=== PATIENT | female | born 1990 | race American Indian/Alaskan Native ===

== ENCOUNTER 2016-11-27 00:01 | Inpatient (IN) | payer MEDICAID ==
[2016-11-27 00:34] LABS: Basophils % (Auto) 0.3 % (0.0-1.8); Eosinophils % (Auto) 0.2 % (0.0-4.3); Hematocrit 30.3 % (30.3-42.9); Hemoglobin 9.9 gm/dl (10.1-14.3); Mean Corpuscular HGB Conc 33 % (30-34); Mean Corpuscular Volume 79 fl (79-97); Platelet Count 117 K/mm3 (140-440); Red Blood Count 3.85 M/mm3 (3.65-5.03); Red Cell Distribution Width 16.6 % (13.2-15.2); White Blood Count 11.6 K/mm3 (4.5-11.0)
[2016-11-27 00:36] LABS: Mean Corpuscular Hemoglobin 26 pg (28-32)
[2016-11-27 00:58] LABS: Alanine Aminotransferase 10 units/L (7-56); Albumin 4.1 g/dL (3.9-5); Alkaline Phosphatase 45 units/L (35-129); Anion Gap 18 mmol/L; Blood Urea Nitrogen 7 mg/dL (7-17); Calcium 9.2 mg/dL (8.4-10.2); Carbon Dioxide 20 mmol/L (22-30); Chloride 97.6 mmol/L (98-107); Glucose 102 mg/dL (65-100); Lipase 19 units/L (13-60); Potassium 3.3 mmol/L (3.6-5.0); Sodium 132 mmol/L (137-145); Total Protein 8.2 g/dL (6.3-8.2)
[2016-11-27 01:58] LABS: Bilirubin,Urine NEG (Negative); Blood,Urine NEG (Negative); Ketones,Urine TR mg/dL (Negative); Leukocyte Esterase,Urine NEG (Negative); Mucus,Urine 1+ /HPF; Nitrite,Urine NEG (Negative); Protein,Urine <15 mg/dL mg/dL (Negative); Urobilinogen,Urine < 2.0 mg/dL (<2.0)
--- NOTE | 2016-11-27 02:33 | Emergency Department Report ---
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 She is complaining of generalized abdominal pain 1 day with one episode of vomiting. Patient denies any fever or chills. Denies any diarrhea. She said she has irregular bowel pattern. She said the pain is crampy. Pain is 10 out of 10 to her abdomen. Denies any vaginal bleeding or discharge. Denies any urinary burning frequency or urgency. Denies any back pain. Dr. Yari Justice's patient primary care physician she also follows a specialist for her lupus. Patient has a history of appendectomy and right oophorectomy. MD Complaint: abdominal pain Onset/Timin -: hour(s) Location: diffuse Radiation: none Migration to: no migration Severity: severe Severity scale (0 -10): 10 Quality: cramping Consistency: constant Improves With: nothing Worsens With: nothing Context: other (unknown) Associated Symptoms: nausea, vomiting, constipation. denies: diarrhea, fever, chills, dysuria, hematemesis, hematochezia, melena, hematuria, anorexia, syncope Treatments Prior to Arrival: other (none) - Related Data LMP Date: 11/01/16 Allergies Allergy/AdvReac Type Severity Reaction Status Date / Time No Known Allergies Allergy Verified 11/27/16 00:09 ED Review of Systems ROS: Stated complaint: STOMACH PAIN Other details as noted in HPI Comment: All other systems reviewed and negative Constitutional: denies: chills, fever ENT: denies: throat pain Respiratory: no symptoms reported Cardiovascular: denies: chest pain, palpitations, edema, syncope Gastrointestinal: abdominal pain, nausea, vomiting. denies: diarrhea, constipation, hematemesis, melena, hematochezia Genitourinary: denies: urgency, dysuria, frequency, hematuria, discharge, abnormal menses Musculoskeletal: denies: back pain, arthralgia, myalgia Skin: rash (patient with lupus rash which is chronic) Neurological: denies: headache, weakness, numbness, paresthesias, confusion, abnormal gait, vertigo ED Past Medical Hx - Past Medical History Previous Medical History?: Yes Additional medical history: Discoid lupus. SLE - Surgical History Past Surgical History?: Yes Additional Surgical History: RIGHT OVARY REMOVAL / C SECTION X 1 - Family History Family history: hypertension (she lives with her family) - Social History Smoking Status: Never Smoker Substance Use Type: Marijuana Other Social History: She lives with her family ED Physical Exam - General Limitations: No Limitations General appearance: alert, in no apparent distress - Head Head exam: Present: atraumatic, normocephalic, normal inspection - Eye Eye exam: Present: normal appearance, PERRL, EOMI Pupils: Present: normal accommodation - ENT ENT exam: Present: normal exam, normal orophraynx, mucous membranes moist - Neck Neck exam: Present: normal inspection, full ROM. Absent: tenderness, meningismus, lymphadenopathy - Respiratory Respiratory exam: Present: normal lung sounds bilaterally. Absent: respiratory distress, wheezes, rales, rhonchi, stridor, chest wall tenderness, accessory muscle use - Cardiovascular Cardiovascular Exam: Present: normal rhythm, tachycardia, normal heart sounds - GI/Abdominal GI/Abdominal exam: Present: soft, tenderness (generalized), guarding, normal bowel sounds. Absent: distended, rebound, rigid, mass, bruit, pulsatile mass, hernia - Extremities Exam Extremities exam: Present: normal inspection, full ROM, normal capillary refill. Absent: tenderness, pedal edema, joint swelling, calf tenderness - Back Exam Back exam: Present: normal inspection, full ROM. Absent: tenderness, CVA tenderness (R), CVA tenderness (L), muscle spasm, paraspinal tenderness, vertebral tenderness, rash noted - Neurological Exam Neurological exam: Present: alert, oriented X3, normal gait, reflexes normal. Absent: motor sensory deficit - Psychiatric Psychiatric exam: Present: normal affect, normal mood - Skin Skin exam: Present: warm, dry, intact, rash, other (patient with generalized rash from discoid lupus which are hyper pigmented areas with butterfly rash to the facial area). Absent: erythema ED Course Vital Signs 11/27/16 11/27/16 11/27/16 00:09 03:10 03:11 Temperature 99.9 F H 99.2 F Pulse Rate 105 H 95 H Respiratory 20 16 16 Rate Blood Pressure 131/63 Blood Pressure 115/73 [Left] O2 Sat by Pulse 100 100 100 Oximetry 11/27/16 11/27/16 11/27/16 03:25 03:54 05:54 Temperature 98 F 98.8 F Pulse Rate 74 100 H Respiratory 18 18 18 Rate Blood Pressure Blood Pressure 119/68 119/74 [Left] O2 Sat by Pulse 97 100 Oximetry 11/27/16 11/27/16 11/27/16 06:39 07:09 11:14 Temperature 99.0 F Pulse Rate 94 H Respiratory 18 18 18 Rate Blood Pressure Blood Pressure 121/71 [Left] O2 Sat by Pulse 100 Oximetry Vital Signs 11/27/16 11/27/16 11/27/16 00:09 03:10 03:11 Temperature 99.9 F H 99.2 F Pulse Rate 105 H 95 H Respiratory 20 16 16 Rate Blood Pressure 131/63 Blood Pressure 115/73 [Left] O2 Sat by Pulse 100 100 100 Oximetry 11/27/16 11/27/16 11/27/16 03:25 03:54 05:54 Temperature 98 F 98.8 F Pulse Rate 74 100 H Respiratory 18 18 18 Rate Blood Pressure Blood Pressure 119/68 119/74 [Left] O2 Sat by Pulse 97 100 Oximetry 11/27/16 06:39 Temperature Pulse Rate Respiratory 18 Rate Blood Pressure Blood Pressure [Left] O2 Sat by Pulse Oximetry - Reevaluation(s) Reevaluation #1: 11/27/16 04:27 Patient is stable she received morphine 4 mg IV, normal saline 1 L, Zofran 4 mg IV and potassium 40 mEq by mouth for potassium of 3.3. She reports no pain at present. Still awaiting CT scan report Reevaluation #2: 11/27/16 05:40 I spoke with attending physician in emergency room regarding patient presentation, lab results and CT findings and it was decided that the patient will be admitted. Awaiting MANAGEMENT TRAINER call back. This was discussed with patient and she is in agreement for admission. Reevaluation #3: 11/27/16 06:20 Patient remained stable, blood cultures order and started on maintenance IV fluid. Abdominal pain is controlled. - Consultations Consultation #1: 11/27/16 05:41 [facility] 11/27/16 06:20 ED Medical Decision Making - Lab Data Result diagrams: 11/27/16 00:17 11/27/16 00:17 Lab Results 11/27/16 11/27/16 11/27/16 Range/Units 00: 00:17 00:17 WBC 11.6 H (4.5-11.0) K/mm3 RBC 3.85 (3.65-5.03) M/mm3 Hgb 9.9 L (10.1-14.3) gm/dl Hct 30.3 (30.3-42.9) % MCV 79 (79-97) fl MCH 26 L (28-32) pg MCHC 33 (30-34) % RDW 16.6 H (13.2-15.2) % Plt Count 117 L (140-440) K/mm3 Lymph % (Auto) 5.4 L (13.4-35.0) % Dickenson % (Auto) 13.1 H (0.0-7.3) % Eos % (Auto) 0.2 (0.0-4.3) % Baso % (Auto) 0.3 (0.0-1.8) % Lymph # 0.6 L (1.2-5.4) K/mm3 Dickenson # 1.5 H (0.0-0.8) K/mm3 Eos # 0.0 (0.0-0.4) K/mm3 Baso # 0.0 (0.0-0.1) K/mm3 Seg Neutrophils % 81.0 H (40.0-70.0) % Seg Neutrophils # 9.4 H (1.8-7.7) K/mm3 Sodium 132 L (137-145) mmol/L Potassium 3.3 L (3.6-5.0) mmol/L Chloride 97.6 L (98-107) mmol/L Carbon Dioxide 20 L (22-30) mmol/L Anion Gap 18 mmol/L BUN 7 (7-17) mg/dL Creatinine 0.4 L (0.7-1.2) mg/dL Estimated GFR > 60 ml/min BUN/Creatinine Ratio 17.50 % Glucose 102 H (65-100) mg/dL Calcium 9.2 (8.4-10.2) mg/dL Total Bilirubin 0.40 (0.1-1.2) mg/dL AST 15 (5-40) units/L ALT 10 (7-56) units/L Alkaline Phosphatase 45 (35-129) units/L Total Protein 8.2 (6.3-8.2) g/dL Albumin 4.1 (3.9-5) g/dL Albumin/Globulin Ratio 1.0 % Lipase 19 (13-60) units/L HCG, Qual Negative (Negative) Urine Color (Yellow) Urine Turbidity (Clear) Urine pH (5.0-7.0) Ur Specific [place] (1.003-1.030) Urine Protein (Negative) mg/dL Urine Glucose (UA) (Negative) mg/dL Urine Ketones (Negative) mg/dL Urine Blood (Negative) Urine Nitrite (Negative) Urine Bilirubin (Negative) Urine Urobilinogen (<2.0) mg/dL Ur Leukocyte Esterase (Negative) Urine WBC (Auto) (0.0-6.0) /HPF Urine RBC (Auto) (0.0-6.0) /HPF U Epithel Cells (Auto) (0-13.0) /HPF Hyaline Casts /LPF Urine Mucus /HPF 11/27/16 Range/Units 00:40 WBC (4.5-11.0) K/mm3 RBC (3.65-5.03) M/mm3 Hgb (10.1-14.3) gm/dl Hct (30.3-42.9) % MCV (79-97) fl MCH (28-32) pg MCHC (30-34) % RDW (13.2-15.2) % Plt Count (140-440) K/mm3 Lymph % (Auto) (13.4-35.0) % Dickenson % (Auto) (0.0-7.3) % Eos % (Auto) (0.0-4.3) % Baso % (Auto) (0.0-1.8) % Lymph # (1.2-5.4) K/mm3 Dickenson # (0.0-0.8) K/mm3 Eos # (0.0-0.4) K/mm3 Baso # (0.0-0.1) K/mm3 Seg Neutrophils % (40.0-70.0) % Seg Neutrophils # (1.8-7.7) K/mm3 Sodium (137-145) mmol/L Potassium (3.6-5.0) mmol/L Chloride (98-107) mmol/L Carbon Dioxide (22-30) mmol/L Anion Gap mmol/L BUN (7-17) mg/dL Creatinine (0.7-1.2) mg/dL Estimated GFR ml/min BUN/Creatinine Ratio % Glucose (65-100) mg/dL Calcium (8.4-10.2) mg/dL Total Bilirubin (0.1-1.2) mg/dL AST (5-40) units/L ALT (7-56) units/L Alkaline Phosphatase (35-129) units/L Total Protein (6.3-8.2) g/dL Albumin (3.9-5) g/dL Albumin/Globulin Ratio % Lipase (13-60) units/L HCG, Qual (Negative) Urine Color Yellow (Yellow) Urine Turbidity Clear (Clear) Urine pH 6.0 (5.0-7.0) Ur Specific [place] 1.019 (1.003-1.030) Urine Protein <15 mg/dl (Negative) mg/dL Urine Glucose (UA) Neg (Negative) mg/dL Urine Ketones Tr (Negative) mg/dL Urine Blood Neg (Negative) Urine Nitrite Neg (Negative) Urine Bilirubin Neg (Negative) Urine Urobilinogen < 2.0 (<2.0) mg/dL Ur Leukocyte Esterase Neg (Negative) Urine WBC (Auto) 3.0 (0.0-6.0) /HPF Urine RBC (Auto) 1.0 (0.0-6.0) /HPF U Epithel Cells (Auto) 2.0 (0-13.0) /HPF Hyaline Casts 1 /LPF Urine Mucus 1+ /HPF Blood cultures are pending and - Radiology Data Radiology results: report reviewed CT of the abdomen with IV contrast revealed complex low-density mass in the left adnexal region measuring up to 4.7 cm in diameter. This could be a hemorrhagic ovarian cyst. The cystic neoplasm or tubo-ovarian abscess considered less likely. There is no ascites, free fluid, abscess or edema past the period. There is moderate stool in the sigmoid and rectum. There is no obstruction, colitis or enteritis. The appendix is not visualized but patient has a history of appendectomy. Normal vasculature. Bladder is normal. Uterus is unremarkable. Spleen, gallbladder, pancreas, adrenal gland is normal. Kidneys show 8 mm cyst with peripheral calcification in the lower pole of the right kidney. There is no nephrolithiasis or hydronephrosis - Medical Decision Making ED course: Patient here reporting that she's had abdominal pain over one day with vomiting. She describes her pain as generalized and cramping. Patient was given a total of 12 mg of morphine and 4 mg increments via IV which helped her pain. Also given Zofran 4 mg IV, IV fluid normal saline 1 L bolus along with IV fluid maintenance dose at 125 mL an hour normal saline. Patient's CBC , CMP with abnormalities, CT scan of the abdomen and pelvis also with abnormalities please see below for details. Patient had blood cultures drawn and sent and started on IV Zosyn. I spoke with Dr. Schulz regarding patient presentation, clinical findings, diagnostics findings and lab results and it was agreed the patient will be admitted to the hospital. I spoke with Dr. Olson who is the hospitalist and he will accept patient and consult MANAGEMENT TRAINER. Patient updated on plan and she is in agreement. Patient given Dulcolax 10 mg by mouth for constipation. She is stable and pain-free at present. Labs/diagnostics:CT of the abdomen with IV contrast revealed complex low- density mass in the left adnexal region measuring up to 4.7 cm in diameter. This could be a hemorrhagic ovarian cyst. The cystic neoplasm or tubo-ovarian abscess considered less likely. There is no ascites, free fluid, abscess or edema past the period. There is moderate stool in the sigmoid and rectum. There is no obstruction, colitis or enteritis. The appendix is not visualized but patient has a history of appendectomy. Normal vasculature. Bladder is normal. Uterus is unremarkable. Spleen, gallbladder, pancreas, adrenal gland is normal. Kidneys show 8 mm cyst with peripheral calcification in the lower pole of the right kidney. There is no nephrolithiasis or hydronephrosis, CBC shows mild elevation in white blood cell and slight shift to the left suggesting bacterial infection, low platelet count of 119, decreased hemoglobin suggesting anemia from chronic disease D Alvaro section for other CBC values. CMP with potassium of 3.3, slight decrease in sodium, chloride and CO2. Lipase is normal. Liver enzymes are normal, test is negative. Urinalysis is normal except for trace ketone and less than 15 protein. Assessment/plan 1. Thrombocytopenia 2. Abdominal pain generalized 3. Constipation 4. Fever in adult 5. Electrolyte imbalances 6. Anemia probably from chronic disease 7. Right renal cyst 8. Left adnexal mass hemorrhagic cyst versus cystic neoplasm versus tubo- ovarian abscess. Patient will be admitted under hospitalist service to inpatient hospital and OB/ LAUNDROMAT WORKER will be consulted. I placed a call to MANAGEMENT TRAINER and spoke with Dr. Katlin Interiano for consult. Patient does have her own MANAGEMENT TRAINER which does not have privilege to this hospital. Patient started on IV Rocephin and maintenance normal saline at 1 25 mL an hour. Critical care attestation.: If time is entered above; I have spent that time in minutes in the direct care of this critically ill patient, excluding procedure time. ED Disposition Disposition: -09 OP ADMIT IP TO THIS HOSP Is pt being admited?: Yes Does the pt Need Aspirin: No Condition: Stable <DARSHANA SCHULZ - Last Filed: 11/28/16 11:06> ED Medical Decision Making - Lab Data Result diagrams: 11/27/16 22:34 11/28/16 04:35 - Medical Decision Making I have seen and examined this patient myself. I agree with the PA or ADULT CROSSING GUARD plan as discussed. Jorgito Schulz
[2016-11-27] MEDS ORDERED: K-DUR PO ONE (03:02)
[2016-11-27] MEDS ORDERED: MORPHINE IV ONE ×2 (03:04→06:34)
[2016-11-27] MEDS ORDERED: ZOFRAN IV ONE (03:04)
[2016-11-27] MEDS ORDERED: NACL 0.9% 1000 ML 1,000 ML IV ONE (03:04)
[2016-11-27] MEDS ORDERED: NACL ONE (03:12)
--- NOTE | 2016-11-27 04:10 | Cat Scan Report ---
FINAL REPORT PROCEDURE: CT ABDOMEN PELVIS W CON TECHNIQUE: Computerized axial tomography of the abdomen and pelvis was performed after the IV injection of iodinated nonionic contrast. HISTORY: abdominal pain very low pelvic pain COMPARISON: No prior studies are available for comparison. FINDINGS: Visualized lower thorax: No significant abnormality. Liver: Normal size and attenuation. There is a 5 millimeters cyst in the right lobe of the liver. Spleen: Normal size and attenuation. Gallbladder and biliary system: Normal. Pancreas: Normal. Adrenals: Normal. Kidneys: There is an 8 millimeter cyst with peripheral calcification in the lower pole of the right kidney. There is no nephrolithiasis or hydronephrosis. GI tract: There is moderate stool in the sigmoid and rectum. There is no obstruction, colitis or enteritis. The appendix is not visible. There is no indirect evidence of appendicitis.. Lymph nodes and mesentery: Normal. Vasculature: Normal. Bladder: Normal. Reproductive organs: Uterus is unremarkable. There is a complex low-density mass in the left adnexal region measuring up to 4.7 centimeters in diameter. This could be a hemorrhagic ovarian cyst. The cystic neoplasm or tubo-ovarian abscess considered less likely.. Peritoneum: There is no ascites, free air, abscess or adenopathy.. Musculoskeletal structures: No significant abnormality. Other: None. IMPRESSION: There is a complex low-density mass in the left adnexal region measuring up to 4.7 centimeters in diameter. This could be a hemorrhagic ovarian cyst. The cystic neoplasm or tubo-ovarian abscess considered less likely.. There is no ascites, free air, abscess or adenopathy..
[2016-11-27] MEDS ORDERED: ZOSYN/NS 4.5GM/100ML 4.5 GM/100 ML VIAL IV ONE (05:43)
[2016-11-27] MEDS: NACL 0.9% 1000 ML 1,000 ML IV SCH ×2 (06:20→16:02)
[2016-11-27] MEDS ORDERED: DULCOLAX PO ONE (06:21)
[2016-11-27] MEDS ORDERED: DULCOLAX PR PRN (08:13)
[2016-11-27] MEDS ORDERED: TYLENOL PO PRN (08:13)
--- NOTE | 2016-11-27 08:13 | History and Physical Report ---
<MICHAEL MACKEY - Last Filed: 11/27/16 13:27> History of Present Illness Date of examination: 11/27/16 Date of admission: 11/27/2016 Chief complaint: lower abdominal pain, nausea and vomiting History of present illness: Patient is 26 years old with past medical history of systemic Lupus and Discoid, who presents to the Emergency Department for lower abdominal pain, nausea and vomiting X 1 day. Patient states that for the past three days she has felt bloated and has had a decrease in appetite. Two days ago she began having intermittent abdominal pain that initially felt like gas pains but it has now progressed to being nearly constant. Since yesterday she has had severe nausea and has had one episodes of bilious vomiting despite not having taken anything by mouth in over 24 hours. Her last bowel movement was over five days ago. She describes the pain crampy and she gave her pain 9/10 at present time. NO aggravating or reliving factors. She did not take any medication to relief the pain. She has a history of intermittent constipation but never with this level of pain, the vomiting, or the bloating. Patient denies any fever or chills , diarrhea, urinary burning frequency or urgency. Denies lower back pain or vaginal discharge or bleeding. Past History Past Medical History: other (systemic lupus and discoid lupus) Past Surgical History: appendectomy, Other (Oophorectomy) Social history: lives with family. denies: smoking, alcohol abuse Family history: CAD, diabetes, hypertension Medications and Allergies Allergies Allergy/AdvReac Type Severity Reaction Status Date / Time No Known Allergies Allergy Verified 11/27/16 00:09 Home Medications Medication Instructions Recorded Confirmed Last Taken Type Hydroxychloroquine [Plaquenil] 200 mg PO Q12HR 11/27/16 11/27/16 11/26/16 History Active Meds: Active Medications Sodium Chloride (Nacl 0.9% 1000 Ml) 1,000 mls @ 125 mls/hr IV DIRECT RUPALI Last Admin: 11/27/16 06:20 Dose: 125 mls/hr Review of Systems Constitutional: no weight loss, no fever, no chills Ears, nose, mouth and throat: no ear pain, no ear discharge, no tinnitis, no decreased hearing, no nose pain Breasts: no change in shape, no swelling, no mass Cardiovascular: no chest pain, no orthopnea, no palpitations Respiratory: no cough, no cough with sputum, no excessive sputum, no hemoptysis , no shortness of breath Gastrointestinal: no nausea, no vomiting, no diarrhea, no constipation Genitourinary Female: no pelvic pain, no flank pain, no menorrhagia, no dysuria , no urinary frequency Menstruation: no premenarcheal, no post hysterectomy, no ammenorrhea, no ammenorrhea on BC, no period normal Rectal: no incontinence, no bleeding Musculoskeletal: no neck pain, no shooting arm pain, no arm numbness/tingling, no low back pain Integumentary: no rash, no pruritis, no redness, no sores Neurological: no paralysis, no weakness, no parathesias, no numbness Psychiatric: no memory loss, no change in sleep habits, no sleep disturbances Endocrine: no cold intolerance, no heat intolerance, no polyphagia Hematologic/Lymphatic: no easy bruising, no easy bleeding Allergic/Immunologic: no urticaria, no allergic rhinitis, no wheezing Exam - Constitutional Vitals: Temp Pulse Resp BP Pulse Ox 98.8 F 100 H 18 119/74 100 11/27/16 05:54 11/27/16 05:54 11/27/16 06:39 11/27/16 05:54 11/27/16 05:54 General appearance: Present: no acute distress - EENT Eyes: Present: PERRL ENT: hearing intact - Neck Neck: Present: supple - Respiratory Respiratory effort: normal Respiratory: bilateral: CTA - Cardiovascular Heart rate: 100 Rhythm: regular Heart Sounds: Present: S1 & S2 - Extremities Extremities: no ischemia, No edema Peripheral Pulses: within normal limits - Abdominal General gastrointestinal: Present: soft, non-tender Localized gastrointestinal: tender: suprapubic Female genitourinary: Present: deferred - Rectal Rectal Exam: deferred - Integumentary Integumentary: Present: clear, warm, dry - Musculoskeletal Musculoskeletal: strength equal bilaterally - Psychiatric Psychiatric: appropriate mood/affect - Neurologic Neurologic: CNII-XII intact - Allied Health Allied health notes reviewed: nursing Results - Labs CBC & Chem 7: 11/27/16 00:17 11/27/16 00:17 Labs: Laboratory Last Values WBC 11.6 K/mm3 (4.5-11.0) H 11/27/16 00:17 RBC 3.85 M/mm3 (3.65-5.03) 11/27/16 00:17 Hgb 9.9 gm/dl (10.1-14.3) L 11/27/16 00:17 Hct 30.3 % (30.3-42.9) 11/27/16 00:17 MCV 79 fl (79-97) 11/27/16 00:17 MCH 26 pg (28-32) L 11/27/16 00:17 MCHC 33 % (30-34) 11/27/16 00:17 RDW 16.6 % (13.2-15.2) H 11/27/16 00:17 Plt Count 117 K/mm3 (140-440) L 11/27/16 00:17 Lymph % (Auto) 5.4 % (13.4-35.0) L 11/27/16 00:17 [place] % (Auto) 13.1 % (0.0-7.3) H 11/27/16 00:17 Eos % (Auto) 0.2 % (0.0-4.3) 11/27/16 00:17 Baso % (Auto) 0.3 % (0.0-1.8) 11/27/16 00:17 Lymph # 0.6 K/mm3 (1.2-5.4) L 11/27/16 00:17 [place] # 1.5 K/mm3 (0.0-0.8) H 11/27/16 00:17 Eos # 0.0 K/mm3 (0.0-0.4) 11/27/16 00:17 Baso # 0.0 K/mm3 (0.0-0.1) 11/27/16 00:17 Seg Neutrophils % 81.0 % (40.0-70.0) H 11/27/16 00:17 Seg Neutrophils # 9.4 K/mm3 (1.8-7.7) H 11/27/16 00:17 Sodium 132 mmol/L (137-145) L 11/27/16 00:17 Potassium 3.3 mmol/L (3.6-5.0) L 11/27/16 00:17 Chloride 97.6 mmol/L (98-107) L 11/27/16 00:17 Carbon Dioxide 20 mmol/L (22-30) L 11/27/16 00:17 Anion Gap 18 mmol/L 11/27/16 00:17 BUN 7 mg/dL (7-17) 11/27/16 00:17 Creatinine 0.4 mg/dL (0.7-1.2) L 11/27/16 00:17 Estimated GFR > 60 ml/min 11/27/16 00:17 BUN/Creatinine Ratio 17.50 % 11/27/16 00:17 Glucose 102 mg/dL (65-100) H 11/27/16 00:17 Calcium 9.2 mg/dL (8.4-10.2) 11/27/16 00:17 Total Bilirubin 0.40 mg/dL (0.1-1.2) 11/27/16 00:17 AST 15 units/L (5-40) 11/27/16 00:17 ALT 10 units/L (7-56) 11/27/16 00:17 Alkaline Phosphatase 45 units/L (35-129) 11/27/16 00:17 Total Protein 8.2 g/dL (6.3-8.2) 11/27/16 00:17 Albumin 4.1 g/dL (3.9-5) 11/27/16 00:17 Albumin/Globulin Ratio 1.0 % 11/27/16 00:17 Lipase 19 units/L (13-60) 11/27/16 00:17 HCG, Qual Negative (Negative) 11/27/16 00:17 Urine Color Yellow (Yellow) 11/27/16 00:40 Urine Turbidity Clear (Clear) 11/27/16 00:40 Urine pH 6.0 (5.0-7.0) 11/27/16 00:40 Ur Specific [place] 1.019 (1.003-1.030) 11/27/16 00:40 Urine Protein <15 mg/dl mg/dL (Negative) 11/27/16 00:40 Urine Glucose (UA) Neg mg/dL (Negative) 11/27/16 00:40 Urine Ketones Tr mg/dL (Negative) 11/27/16 00:40 Urine Blood Neg (Negative) 11/27/16 00:40 Urine Nitrite Neg (Negative) 11/27/16 00:40 Urine Bilirubin Neg (Negative) 11/27/16 00:40 Urine Urobilinogen < 2.0 mg/dL (<2.0) 11/27/16 00:40 Ur Leukocyte Esterase Neg (Negative) 11/27/16 00:40 Urine WBC (Auto) 3.0 /HPF (0.0-6.0) 11/27/16 00:40 Urine RBC (Auto) 1.0 /HPF (0.0-6.0) 11/27/16 00:40 U Epithel Cells (Auto) 2.0 /HPF (0-13.0) 11/27/16 00:40 Hyaline Casts 1 /LPF 11/27/16 00:40 Urine Mucus 1+ /HPF 11/27/16 00:40 - Imaging and Cardiology CT scan - abdomen: image reviewed (There is a complex-density mass in the left adnexal region measuring up to 4.7cm. This could be a hemorragic ovarian cyst.) Assessment and Plan Assessment and plan: Lecocytosis Unknown Ethology We will repeat CBC in the morning Abdominal pain/Intractable nausea and vomiting Antiemetic IV fluid hydration Pain controlled with morphine Supportive care Hyponatremia Started on IVF hydration with NS this will correct it. Clsely monitor electrolytes Hypokalemia Replaced with 40MEQ potassium Repeat MBP and closely monitor electrolytes Adnexal mass Transvaginal and Pelvic US ordered OBYGN consulted Supportive care Systemic Lupus and Discoid Lupus Stable at this time Follow up with her PCP us outpatient. DVT Prophylaxis Lovenox Advance Directives: Yes Contraindication Mechanical VTE Prophylaxis: Treatment Not Indicated Plan of care discussed with patient/family: Yes <CHAD JONES R - Last Filed: 11/28/16 09:19> History of Present Illness Date of admission: 11/27/16 08:13 Medications and Allergies Active Meds: Active Medications Acetaminophen (Tylenol) 650 mg PO Q4H PRN PRN Reason: Pain MILD(1-3)/Fever >100.5/ELIAS Bisacodyl (Dulcolax) 10 mg [place] QDAY PRN PRN Reason: Constipation unrelieved by MOM Enoxaparin Sodium (Lovenox) 40 mg SUB-Q QDAY [facility] Last Admin: 11/27/16 09:49 Dose: 40 mg Hydroxychloroquine Sulfate (Plaquenil) 200 mg PO Q12HR [facility] Last Admin: 11/27/16 22:18 Dose: 200 mg Sodium Chloride (Nacl 0.9% 1000 Ml) 1,000 mls @ 125 mls/hr IV DIRECT RUPALI Last Admin: 11/27/16 16:02 Dose: 1,000 mls/hr Sodium Chloride (Nacl 0.9% 1000 Ml) 1,000 mls @ 75 mls/hr IV DIRECT RUPALI Ampicillin Sodium/Sulbactam Sodium (Unasyn/Ns 3 Gm/100 Ml) 3 gm in 100 mls @ 100 mls/hr IV Q6HR RUPALI PRN Reason: Protocol Last Admin: 11/28/16 07:17 Dose: 100 mls/hr Doxycycline Hyclate 100 mg/ (Sodium Chloride) 250 mls @ 250 mls/hr IV Q12HR RUPALI PRN Reason: Protocol Last Admin: 11/27/16 23:44 Dose: 250 mls/hr Morphine Sulfate (Morphine) 2 mg IV Q4H PRN PRN Reason: Pain , Severe (7-10) Last Admin: 11/28/16 04:00 Dose: 2 mg Ondansetron HCl (Zofran) 4 mg IM Q4H PRN PRN Reason: Nausea And Vomiting Last Admin: 11/28/16 04:00 Dose: 4 mg Exam - Constitutional Vitals: Temp Pulse Resp BP Pulse Ox 99.8 F H 89 14 114/59 100 11/27/16 21:40 11/27/16 21:40 11/27/16 21:40 11/27/16 21:40 11/27/16 21:40 Results - Labs CBC & Chem 7: 11/27/16 22:34 11/28/16 04:35 Labs: Laboratory Last Values WBC 10.3 K/mm3 (4.5-11.0) 11/27/16 22:34 RBC 3.49 M/mm3 (3.65-5.03) L 11/27/16 22:34 Hgb 9.1 gm/dl (10.1-14.3) L 11/27/16 22:34 Hct 27.7 % (30.3-42.9) L 11/27/16 22:34 MCV 79 fl (79-97) 11/27/16 22:34 MCH 26 pg (28-32) L 11/27/16 22:34 MCHC 33 % (30-34) 11/27/16 22:34 RDW 15.9 % (13.2-15.2) H 11/27/16 22:34 Plt Count 99 K/mm3 (140-440) L 11/27/16 22:34 Lymph % (Auto) 10.7 % (13.4-35.0) L 11/27/16 22:34 [place] % (Auto) 13.5 % (0.0-7.3) H 11/27/16 22:34 Eos % (Auto) 0.0 % (0.0-4.3) 11/27/16 22:34 Baso % (Auto) 0.1 % (0.0-1.8) 11/27/16 22:34 Lymph # 1.1 K/mm3 (1.2-5.4) L 11/27/16 22:34 [place] # 1.4 K/mm3 (0.0-0.8) H 11/27/16 22:34 Eos # 0.0 K/mm3 (0.0-0.4) 11/27/16 22:34 Baso # 0.0 K/mm3 (0.0-0.1) 11/27/16 22:34 Seg Neutrophils % 75.7 % (40.0-70.0) H 11/27/16 22:34 Seg Neutrophils # 7.8 K/mm3 (1.8-7.7) H 11/27/16 22:34 Sodium 135 mmol/L (137-145) L 11/28/16 04:35 Potassium 3.5 mmol/L (3.6-5.0) L 11/28/16 04:35 Chloride 100.9 mmol/L (98-107) 11/28/16 04:35 Carbon Dioxide 21 mmol/L (22-30) L 11/28/16 04:35 Anion Gap 17 mmol/L 11/28/16 04:35 BUN 5 mg/dL (7-17) L 11/28/16 04:35 Creatinine 0.5 mg/dL (0.7-1.2) L 11/28/16 04:35 Estimated GFR > 60 ml/min 11/28/16 04:35 BUN/Creatinine Ratio 10.00 % 11/28/16 04:35 Glucose 83 mg/dL (65-100) 11/28/16 04:35 Calcium 8.3 mg/dL (8.4-10.2) L 11/28/16 04:35 Total Bilirubin 0.40 mg/dL (0.1-1.2) 11/27/16 00:17 AST 15 units/L (5-40) 11/27/16 00:17 ALT 10 units/L (7-56) 11/27/16 00:17 Alkaline Phosphatase 45 units/L (35-129) 11/27/16 00:17 Total Protein 8.2 g/dL (6.3-8.2) 11/27/16 00:17 Albumin 4.1 g/dL (3.9-5) 11/27/16 00:17 Albumin/Globulin Ratio 1.0 % 11/27/16 00:17 Lipase 19 units/L (13-60) 11/27/16 00:17 HCG, Qual Negative (Negative) 11/27/16 00:17 Urine Color Yellow (Yellow) 11/27/16 00:40 Urine Turbidity Clear (Clear) 11/27/16 00:40 Urine pH 6.0 (5.0-7.0) 11/27/16 00:40 Ur Specific [place] 1.019 (1.003-1.030) 11/27/16 00:40 Urine Protein <15 mg/dl mg/dL (Negative) 11/27/16 00:40 Urine Glucose (UA) Neg mg/dL (Negative) 11/27/16 00:40 Urine Ketones Tr mg/dL (Negative) 11/27/16 00:40 Urine Blood Neg (Negative) 11/27/16 00:40 Urine Nitrite Neg (Negative) 11/27/16 00:40 Urine Bilirubin Neg (Negative) 11/27/16 00:40 Urine Urobilinogen < 2.0 mg/dL (<2.0) 11/27/16 00:40 Ur Leukocyte Esterase Neg (Negative) 11/27/16 00:40 Urine WBC (Auto) 3.0 /HPF (0.0-6.0) 11/27/16 00:40 Urine RBC (Auto) 1.0 /HPF (0.0-6.0) 11/27/16 00:40 U Epithel Cells (Auto) 2.0 /HPF (0-13.0) 11/27/16 00:40 Hyaline Casts 1 /LPF 11/27/16 00:40 Urine Mucus 1+ /HPF 11/27/16 00:40 Assessment and Plan Assessment and plan: I saw and evaluated the patient on 11/27/16. I agree with the findings and the plan of care as documented in the Nurse Practitioner's~note, with the following corrections and additions. 1. 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 Intractable nausea/vomiting, likely from gastritis, now resolved, will start on diet 3. hypokalemia, replace, likely from N/V 4. adnexal mass - obg/mobile patrol officer consult 5. h/o lupus - cont plaquenil
--- NOTE | 2016-11-27 08:38 | Admit Criteria Form ---
Admission Criteria Documentation: ABDOMINAL PAIN Clinical Indications for Admission to Inpatient Care (Place 'X' for any and all applicable criteria): Admission is indicated for ANY ONE of the following(1)(2)(3)(4)(5): [X]I. Inpatient admission required rather than observation care (Also use Abdominal Pain: Observation Care, as appropriate) because of ANY ONE of the following: [X ]a) Severe pain requiring acute inpatient management [ ]b) Identification of etiology/finding that requires inpatient care (eg, aortic dissection, free air) [ ]c) Absent bowel sounds with complete ileus(6) [ ]d) Suspected toxic megacolon [ ]e) Severe electrolyte abnormalities requiring inpatient care [ ]f) High fever or infection requiring inpatient admission as indicated by ANY ONE of following(7)(8): [ ] i) Appropriate outpatient or observational care antimicrobial treatment unavailable, not effective, or not feasible [ ] ii) Documented bacteremia [ ] iii) Temperature > 104.9 degrees F (oral) [ ] iv) T >103.1 F (oral) or < 96.8 F(rectal) that does not respond to all emergency treatment measures [ ]g) Signs of intestinal obstruction [B] [ ]h) Hemodynamic instability [ ]i) IV fluid to replace significant ongoing losses (greater than 3 L/m2 per day) (12)(13) [ ]j) Percutaneous or open drainage (eg, abscess, biliary tract ) procedures [ ]k) Parenteral nutrition regimen that must be implemented on inpatient basis []l) Other condition,treatment or monitoring requiring inpatient admission. [ ]II. Peritoneal signs present [ ]III. Surgery needed that cannot be performed on an ambulatory basis. [ ]IV. Evaluation requires patient to not eat or drink for extended period ( eg, more than 24 hours). [ ]V. Contraindications and/or Inappropriate clinical situations for Observational Care in patients with abdominal pain, when ANY ONE of the following is required: [ ]a) Thorough evaluation is required to prevent catastrophic events due to delays in diagnosing (e.g.Mesenteric ischemia) 1,3 [ ]b) Patient with severe pathology or with chronic symptoms unlikely to improve in the ED stay (3) [ ]. General contraindications and/or Inappropriate clinical situations for Observational Care in patients with abdominal pain, when ANY ONE of the following is required: [ ]a) Prediction of prolongation of LOS based on ANY ONE of the following may be considered as a contraindication for observational care 2, 3, 4, 5, 6, 7, 8, 9, 10, 11 [ ]i) Age > 65 yrs. [ ]ii) Patient arriving by ambulance [ ]iii) Patient with high acuity [ ]iv) Patient requiring vital sign monitoring [ ]v) Patient on IV medication [ ]b) Systolic blood pressures 180mmHg 3,12 [ ]c) Patient with altered mental status including delirium and other alteration of consciousness, (3) [ ]d) Patient whose discharge disposition will be to a senior living home or rehabilitation home should not be managed in Emergency Department Observation Unit. CMS rule requires 3 days hospital stay before such placement.3,13 [ ]e) Patient with failure to thrive due to broad array of etiologies 3,16,17 [ ]f) Inability to ambulate 3,14 Extended stay beyond goal length of stay may be needed for(2)(3): [ ]a) Persistent abdominal pain with suspected intra-abdominal process [ ]b) Diagnosed condition requiring continued stay (e.g., pancreatitis, complicated diverticulitis) [ ]c) Surgery (e.g., colectomy) The original [facility] [employer] content created by [employer] has been revised. The portions of the content which have been revised are identified through the use of italic text or in bold, and [facility] has neither reviewed nor approved the modified material.All other unmodified content is copyright [facility] Please see references footnoted in the original [facility] edition 2016 Admission Criteria Met: Yes
--- NOTE | 2016-11-27 09:01 | Ultrasound Report ---
Pelvic and transvaginal sonography: History: Adnexal mass. Findings: Uterus measures 8 x 4.4 x 5 cm. Endometrial thickness 17.2 mm. No fluid in the endometrium. No mass in the uterus. Right ovary not visualized. Patient gives history of right oophorectomy. Left ovary measures 5.3 x 4.5 x 4.8 cm. 2 complex cysts are identified in the left ovary. The larger measures 3.8 cm the smaller measures 2.2 cm. Minimal fluid in the cul-de-sac. Impression: Complex cyst left ovary. Minimal fluid in the cul-de-sac. Thick endometrium.
[2016-11-27] MEDS: LOVENOX SUB-Q SCH (09:49)
[2016-11-27] MEDS ORDERED: NACL 0.9% 1000 ML 1,000 ML IV SCH (10:00)
[2016-11-27] MEDS: ZOFRAN IM PRN ×3 (11:23→22:18)
[2016-11-27] MEDS: MORPHINE IV PRN ×3 (11:23→22:19)
[2016-11-27] MEDS: PLAQUENIL PO SCH (22:18)
--- NOTE | 2016-11-27 22:36 | Consultation ---
History of Present Illness Consult date: 11/27/16 Requesting physician: CHAD JONES Reason for consult: pelvic pain, pelvic mass History of present illness: This is a 26 yo here for abdominal pain. She states that she experienced pain starting yesterday. She states that it was 8/10 in intensity. She denies any vaginal bleeding but admits to some vaginal discharge. She admits to hx of chlam and simba in the past 5 years ago. She has some nausea only throwing up 1 x last night. She states she has low fever but has not taken at home and highest while hospitalized was 99. 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 She admits to being dx with endometriosis. She denies any control. She denies any pain in the past and really concerned about the constipation she has had in the past 3 days. 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 denies: smoking, alcohol abuse, prescription drug abuse Medications and Allergies Allergies Allergy/AdvReac Type Severity Reaction Status Date / Time No Known Allergies Allergy Verified 11/27/16 00:09 Home Medications Medication Instructions Recorded Confirmed Last Taken Type Hydroxychloroquine [Plaquenil] 200 mg PO Q12HR 11/27/16 11/27/16 11/26/16 History Doxycycline [Vibramycin CAP] 100 mg PO BID #20 capsule 11/29/16 Unknown Rx metroNIDAZOLE [Flagyl] 500 mg PO Q8HR #30 tablet 11/29/16 Unknown Rx oxyCODONE /ACETAMINOPHEN [Percocet 1 tab PO Q6HR PRN #20 tablet 11/29/16 Unknown Rx 5/325] Active Meds: Active Medications Acetaminophen (Tylenol) 650 mg PO Q4H PRN PRN Reason: Pain MILD(1-3)/Fever >100.5/ELIAS Bisacodyl (Dulcolax) 10 mg [place] QDAY PRN PRN Reason: Constipation unrelieved by MOM Enoxaparin Sodium (Lovenox) 40 mg SUB-Q QDAY [facility] Last Admin: 11/27/16 09:49 Dose: 40 mg Hydroxychloroquine Sulfate (Plaquenil) 200 mg PO Q12HR [facility] Last Admin: 11/27/16 22:18 Dose: 200 mg Sodium Chloride (Nacl 0.9% 1000 Ml) 1,000 mls @ 125 mls/hr IV DIRECT RUPALI Last Admin: 11/27/16 16:02 Dose: 1,000 mls/hr Sodium Chloride (Nacl 0.9% 1000 Ml) 1,000 mls @ 75 mls/hr IV DIRECT R[facility]ALI Ampicillin Sodium/Sulbactam Sodium (Unasyn/Ns 3 Gm/100 Ml) 3 gm in 100 mls @ 100 mls/hr IV Q6HR [facility] PRN Reason: Protocol Doxycycline Hyclate 100 mg/ (Sodium Chloride) 250 mls @ 250 mls/hr IV Q12HR [facility] PRN Reason: Protocol Morphine Sulfate (Morphine) 2 mg IV Q4H PRN PRN Reason: Pain , Severe (7-10) Last Admin: 11/27/16 22:19 Dose: 2 mg Ondansetron HCl (Zofran) 4 mg IM Q4H PRN PRN Reason: Nausea And Vomiting Last Admin: 11/27/16 22:18 Dose: 4 mg Review of Systems Gastrointestinal: abdominal pain, nausea, vomiting Genitourinary: vaginal discharge - Vital Signs Vital signs: Vital Signs Temp Pulse Resp BP Pulse Ox 99.9 F H 105 H 20 131/63 100 11/27/16 00:09 11/27/16 00:09 11/27/16 00:09 11/27/16 00:09 11/27/16 00:09 Temp Pulse Resp BP Pulse Ox 99.8 F H 89 14 114/59 100 11/27/16 21:40 11/27/16 21:40 11/27/16 21:40 11/27/16 21:40 11/27/16 21:40 - Physical Exam Breasts: Positive: deferred Cardiovascular: Regular rate, Normal S1 Lungs: Positive: Clear to auscultation, Normal air movement Abdomen: Positive: normal appearance, soft, tenderness, normal bowel sounds. Negative: distention, guarding Genitourinary (Female): Positive: normal external genitalia, normal perenium. Negative: perineal/vulvar lesions Vulva: both: normal Vagina: Positive: normal moisture, discharge (white thin discharge) Cervix: Positive: discharge. Negative: lesion Uterus: Positive: normal size, tender Adnexa: both: tenderness (+ cervical motion tenderness ) Anus/Rectum: Positive: normal perianal skin Extremities: Positive: normal Deep Tendon Reflex Grade: Normal +2 Results Result Diagrams: 11/29/16 07:24 11/29/16 07:24 All other labs normal. Ultrasound: report reviewed CT scan - abdomen: report reviewed CT scan - pelvis: report reviewed Assessment and Plan A/P Abdominal pain, ovarian cyst Possible constipation - recommeneded stool softners, , fleet enemas, increase hydration There is some cervical motion tenderness with slightly elevated wbc with left shift not impressive but cmt and hx of simba and chlamydia with US with probable hemorrhagic cyst would treat for PID with Ampicillin/Sulbactam 3g every 6 hrs and Doxycycline 100 mg bid for 24 hrs and then convert to oral antibiotics for 7-10 days I have sent cultures as the pelvic exam showed foul smelling discharge and CMT ( investigate simba,chlam) continue watching cultures ( sent from the ER) sent CBC for trend of wbc f/u US in 4 weeks for hemorrhagic cyst more likely than neoplasm ( minimal sonographically of neoplasm -will call radiology in am to review scan ) vs TOA 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
[2016-11-27 23:37] LABS: Basophils % (Auto) 0.1 % (0.0-1.8); Hematocrit 27.7 % (30.3-42.9); Hemoglobin 9.1 gm/dl (10.1-14.3); Mean Corpuscular HGB Conc 33 % (30-34); Mean Corpuscular Hemoglobin 26 pg (28-32); Mean Corpuscular Volume 79 fl (79-97); Red Blood Count 3.49 M/mm3 (3.65-5.03); Red Cell Distribution Width 15.9 % (13.2-15.2); White Blood Count 10.3 K/mm3 (4.5-11.0)
[2016-11-27 23:42] LABS: Platelet Count 99 K/mm3 (140-440)
[2016-11-27] MEDS: DOXYCYCLINE HYCLATE 100 MG in NACL 0.9% 250ML 250 ML IV SCH (23:44)
[2016-11-28] MEDS: UNASYN/NS 3 GM/100 ML 3 GM/100 ML BAG IV SCH ×4 (01:49→18:58)
[2016-11-28] MEDS: MORPHINE IV PRN ×4 (04:00→21:53)
[2016-11-28] MEDS: ZOFRAN IM PRN ×4 (04:00→21:53)
[2016-11-28 06:08] LABS: Anion Gap 17 mmol/L; Blood Urea Nitrogen 5 mg/dL (7-17); Calcium 8.3 mg/dL (8.4-10.2); Carbon Dioxide 21 mmol/L (22-30); Chloride 100.9 mmol/L (98-107); Glucose 83 mg/dL (65-100); Potassium 3.5 mmol/L (3.6-5.0); Sodium 135 mmol/L (137-145)
[2016-11-28] MEDS: PLAQUENIL PO SCH ×2 (10:44→21:33)
[2016-11-28] MEDS: LOVENOX SUB-Q SCH (10:44)
[2016-11-28] MEDS: NACL 0.9% 1000 ML 1,000 ML IV SCH (11:52)
[2016-11-28] MEDS: DOXYCYCLINE HYCLATE 100 MG in NACL 0.9% 250ML 250 ML IV SCH ×2 (11:54→21:32)
[2016-11-28] MEDS ORDERED: K-DUR PO ONE (15:04)
--- NOTE | 2016-11-28 15:43 | Progress Note ---
Assessment and Plan 1. leukocytosis - likely acute PID - There was some cervical motion tenderness during pelvic exam - pt has h/o simba and chlamydia with US with probable hemorrhagic cyst - Obg/marketing communications coordinator recommended to treat for PID with Ampicillin/Sulbactam 3g every 6 hrs and Doxycycline 100 mg bid for 24 hrs and then convert to oral antibiotics for 7-10 days 2. Intractable nausea/vomiting, - likely from gastritis/PID, now resolved, tolerating diet 3. hypokalemia, replaced, likely from N/V 4. adnexal hemorrhagic mass - obg/marketing communications coordinator consulted - Repeat pelvic ultrasound in 4 weeks 5. h/o lupus - cont plaquenil Subjective Date of service: 11/28/16 Interval history: Patient seen and examined. Medical records and medication list reviewed. No acute event overnight noted by the RN. Patient complains of lower abdominal pain. Patient is tolerating diet. Discussed plan of care at bedside with patient. Objective - Exam Narrative Exam: GENERAL: well-developed AA female lying on bed appeared to be in no discomfort. HEENT: Normocephalic. Atraumatic. No conjunctival congestion or icterus. Patient has moist mucous membranes. NECK: Supple. Trachea midline. CHEST/LUNGS: Clear to auscultated bilaterally, breathing nonlabored. No wheezes crackles or rhonchi. HEART/CARDIOVASCULAR: Regular in rate and rhythm. S1 and S2 positive. ABDOMEN: Abdomen is soft, positive pelvic tenderness. Patient has normal bowel sounds. SKIN: Dry scaly rash. Warm and dry. Has significant depigmentation on the face mainly on nasal and malar bone area NEURO: No focal motor deficit. Follows command. MUSCULOSKELETAL: No joint effusion or tenderness. EXTRIMITY: No edema, no cyanosis or clubbing. PSYCH: Cooperative. - Constitutional Vitals: Vital Signs - 12hr 11/28/16 08:00 Temperature 99.1 F Pulse Rate 87 Respiratory 16 Rate Blood Pressure 115/70 O2 Sat by Pulse 100 Oximetry - Labs CBC & Chem 7: 11/29/16 07:24 11/29/16 07:24 Labs: Abnormal lab results 11/27/16 11/28/16 Range/Units 22:34 04:35 RBC 3.49 L (3.65-5.03) M/mm3 Hgb 9.1 L (10.1-14.3) gm/dl Hct 27.7 L (30.3-42.9) % MCH 26 L (28-32) pg RDW 15.9 H (13.2-15.2) % Plt Count 99 L (140-440) K/mm3 Lymph % (Auto) 10.7 L (13.4-35.0) % [place]rick % (Auto) 13.5 H (0.0-7.3) % Lymph # 1.1 L (1.2-5.4) K/mm3 Warrick # 1.4 H (0.0-0.8) K/mm3 Seg Neutrophils % 75.7 H (40.0-70.0) % Seg Neutrophils # 7.8 H (1.8-7.7) K/mm3 Sodium 135 L (137-145) mmol/L Potassium 3.5 L (3.6-5.0) mmol/L Carbon Dioxide 21 L (22-30) mmol/L BUN 5 L (7-17) mg/dL Creatinine 0.5 L (0.7-1.2) mg/dL Calcium 8.3 L (8.4-10.2) mg/dL - Imaging and cardiology CT scan - pelvis: report reviewed US - abdomen: report reviewed
[2016-11-28 20:28] LABS: Hematocrit 26.1 % (30.3-42.9); Hemoglobin 8.5 gm/dl (10.1-14.3)
[2016-11-29] MEDS: UNASYN/NS 3 GM/100 ML 3 GM/100 ML BAG IV SCH ×2 (01:05→06:07)
[2016-11-29] MEDS: MORPHINE IV PRN (04:38)
[2016-11-29 07:48] VITALS: BP 96/55
[2016-11-29 08:15] LABS: Hematocrit 26.2 % (30.3-42.9); Hemoglobin 8.4 gm/dl (10.1-14.3)
[2016-11-29 08:40] LABS: Anion Gap 17 mmol/L; Blood Urea Nitrogen 3 mg/dL (7-17); Calcium 7.9 mg/dL (8.4-10.2); Carbon Dioxide 21 mmol/L (22-30); Glucose 75 mg/dL (65-100); Potassium 3.7 mmol/L (3.6-5.0); Sodium 136 mmol/L (137-145)
[2016-11-29] MEDS: LOVENOX SUB-Q SCH (09:04)
[2016-11-29] MEDS: PLAQUENIL PO SCH (09:05)
--- NOTE | 2016-11-29 09:10 | Discharge Summary ---
Providers - Providers Date of Admission: 11/27/16 08:13 Date of discharge: 11/29/16 Attending physician: CHAD JONES Primary care physician: [facility] [facility] Hospitalization Condition: Stable Hospital course: Discharge Diagnosis and management: 1. leukocytosis - likely acute PID - There was some cervical motion tenderness during pelvic exam - pt has h/o simba and chlamydia with US with probable hemorrhagic cyst - Obg/program consultant recommended to treat for PID with Ampicillin/Sulbactam 3g every 6 hrs and Doxycycline 100 mg bid for 24 hrs and then convert to oral antibiotics for 7-10 days 2. Intractable nausea/vomiting, - likely from gastritis/PID, now resolved, tolerating diet 3. hypokalemia, replaced, likely from N/V 4. adnexal hemorrhagic mass - obg/program consultant consulted - Repeat pelvic ultrasound in 4 weeks 5. h/o lupus - cont plaquenil Disposition: - TO HOME OR SELFCARE Time spent for discharge: 32 minutes Core Measure Documentation - Palliative Care Palliative Care/ Comfort Measures: Not Applicable - Core Measures Any of the following diagnoses?: none Exam - Physical Exam Narrative exam: GENERAL: well-developed AA female lying on bed appeared to be in no discomfort. HEENT: Normocephalic. Atraumatic. No conjunctival congestion or icterus. Patient has moist mucous membranes. NECK: Supple. Trachea midline. CHEST/LUNGS: Clear to auscultated bilaterally, breathing nonlabored. No wheezes crackles or rhonchi. HEART/CARDIOVASCULAR: Regular in rate and rhythm. S1 and S2 positive. ABDOMEN: Abdomen is soft, positive pelvic tenderness. Patient has normal bowel sounds. SKIN: Dry scaly rash. Warm and dry. Has significant depigmentation on the face mainly on nasal and malar bone area NEURO: No focal motor deficit. Follows command. MUSCULOSKELETAL: No joint effusion or tenderness. EXTRIMITY: No edema, no cyanosis or clubbing. PSYCH: Cooperative. - Constitutional Vitals: Temp Pulse Resp BP Pulse Ox 99.3 F 86 15 96/55 100 11/29/16 06:55 11/29/16 06:55 11/29/16 06:55 11/29/16 06:55 11/29/16 06:55 Plan Activity: advance as tolerated Weight Bearing Status: Weight Bear as Tolerated Diet: regular Additional Instructions: f/u with Obg/program consultant in next 3 days Follow up with: PRIMARY CARE, [Primary Care Provider] - 3-5 Days Prescriptions: Doxycycline [Vibramycin CAP] 100 mg PO BID #20 capsule metroNIDAZOLE [Flagyl] 500 mg PO Q8HR #30 tablet oxyCODONE /ACETAMINOPHEN [Percocet 5/325] 1 tab PO Q6HR PRN #20 tablet PRN Reason: Pain
[2016-11-29] MEDS ORDERED: VIBRAMYCIN PO SCH (10:00)
[2016-11-29] MEDS ORDERED: PERCOCET 5/325 PO PRN (13:21)
--- NOTE | 2016-11-29 14:12 | Event Note ---
Date: 11/29/16 HD#2 ovarian cyst, abd pain, nausea Patient reports pain improved after antibiotics and pain meds. VSS Afebrile WBC decreased BV in vaginal cuture Spoke with Radiology Dr. Shelley. 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 complex cyst more likely Hx of endometriosis ( may be endometrioma) vs hemorhagic cyst Switched from 24 hrs of amp/sulb and doxy Recommended oral abx doxy for 10 days and flagyl for BV for 7 days F/U with primary OB within 3 days US and possible MrI F/u in [address] Salazar about findings and recommendations
[2016-11-29 14:24] LABS: Hematocrit 26.6 % (30.3-42.9); Hemoglobin 8.9 gm/dl (10.1-14.3)
== END 2016-11-29 14:40 | disposition home or self-care (01) | DRG 758 ==
LOC: ED 00:01 → 3A 08:13
PROVIDERS: ADMIT Internal Medicine; ATTEND Internal Medicine
DX: N73.9 Female pelvic inflammatory disease, unspecified (principal); E87.1 Hypo-osmolality and hyponatremia; E87.6 Hypokalemia; M32.9 Systemic lupus erythematosus, unspecified; F12.10 Cannabis abuse, uncomplicated; D69.6 Thrombocytopenia, unspecified; K59.00 Constipation, unspecified; N28.1 Cyst of kidney, acquired; R19.09 Other intra-abdominal and pelvic swelling, mass and lump; D72.829 Elevated white blood cell count, unspecified; Z82.49 Family history of ischemic heart disease and other diseases of the circulatory system; Z90.49 Acquired absence of other specified parts of digestive tract; Z83.3 Family history of diabetes mellitus; Z90.722 Acquired absence of ovaries, bilateral
CPT/HCPCS: 36415; 74177; 76830; 76856; 80048; 80053; 81001; 82962; 83690; 84703; 85014; 85018; 85025; 87040; 87210; 87591; 96372; 96374; 96375; 96376; J0295; J1650; J2270; J2405; J2543; J7030; J7050; Q9967